=== PATIENT | female | born 2000 | race Asian ===

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

== ENCOUNTER 2025-01-25 09:48 | Emergency (ER) | payer OTHER, SELFPAY ==
[2025-01-25 09:59] VITALS: BP 120/64; PULSE 78; RESP 18; TEMP 37; O2SAT 100; BMI 22.8
--- NOTE | 2025-01-25 10:05 | DI.US.S_ITS ---
PROCEDURE: US PELVIC COMPLETE INDICATIONS: 4 WEEKS PREG WITH BLEEDING TECHNIQUE: Real-time scanning was performed of the pelvic organs, with image documentation. Additional endovaginal scanning was necessary due to incomplete visualization of the adnexal and endometrial structures by transabdominal scanning. COMPARISON: None. FINDINGS: Uterus: Uterus is anteverted and normal in size at 8.3 x 4.4 x 5.6 cm. The myometrium is homogeneous. The endometrium measures 6.0 mm combined thickness. No fibroids Ovaries: The right ovary measures 2.8 x 2.8 x 1.4 cm, with a calculated ovarian volume of 5.5 cc. The left ovary measures 3.6 x 1.8 x 2.2 cm, with a calculated ovarian volume of 7.4 cc. The ovaries have a normal sonographic appearance. Less than 12 follicles can be seen in each ovary. No adnexal masses are seen. Probable corpus luteum of the left ovary measuring 0.9 x 1.0 x 0.7 cm. Other: No pathologic free abdominal or pelvic fluid. IMPRESSION: No evidence of intrauterine or extra uterine . Recommend correlation with serial beta hCGs and possible follow-up ultrasound in 2-3 weeks. We strive to produce accurate, complete, and clear reports of imaging services. To assist us in improving patient care, this report was composed using standard report templates and voice recognition software. Therefore, it may contain abnormal punctuation, insertions and/or omissions. Occasional wrong-word or sound-alike substitutions may occur. Though we review the report and make efforts to correct it, we do recommend that the report be read carefully in proper context to recognize any text inaccuracies. Dictated by: Black Sosa M.D. on 01/25/2025 at 11:03 Approved by: Black Sosa M.D. on 01/25/2025 at 11:10
[2025-01-25 10:47] LABS: Add Manual Diff / Slide Review NO; Hematocrit 40.1 % (36-46); Hemoglobin 13.4 g/dL (12.0-16.0); Lymphocytes Absolute Auto 2200 /uL (1100-4500); Mean Corpuscular HGB Conc 33.3 % (30-36); Mean Corpuscular Hemoglobin 29.6 PG (26-34); Mean Corpuscular Volume 88.7 fL (80-100); Platelet Count 300 X10^3/uL (150-400)
[2025-01-25 11:03] LABS: Alanine Aminotransferase 13 IU/L (<35); Albumin 4.7 g/dL (3.5-5.0); Albumin Globulin Ratio 1.3 (1.0-2.8); Alkaline Phosphatase 61 U/L (38-126); Blood Urea Nitrogen 10 mg/dL (7-17); Calcium 8.8 mg/dL (8.4-10.2); Carbon Dioxide 20 mmol/L (22-32); Chloride 107 mmol/L (98-107); Estimated Glomerular Filt Rate > 60 mL/min (>60); Globulin 3.5 g/dL (1.7-4.1); Glucose 88 mg/dL (70-99); HEMOLYSIS 33 (0-50); Potassium 3.6 mmol/L (3.4-5.1); Sodium 139 mmol/L (137-145); Total Protein 8.2 g/dL (6.3-8.2)
[2025-01-25 11:20] LABS: HCG Quantitative /Beta subunit 4.09 mIU/mL
--- NOTE | 2025-01-25 11:50 | ED.PREGNANCY ---
HPI - General Chief complaint: Vaginal Bleeding Stated complaint: 3 1/2 weeks , bleeding Time Seen by Provider: 01/25/25 11:10 Source: patient Mode of arrival: Ambulatory Limitations: no limitations History of Present Illness HPI Narrative: 24-year-old female with LMP 12/25/2024 presents to the ED with vaginal bleeding, pelvic cramping that started this morning. Patient had a positive home test last week. No fever, chills, chest pain, shortness of breath, dysuria, abdominal pain, lightheadedness, dizziness, syncope. Patient has saw OBGYN Dr. Schultz on 01/12/2025 to initiate oral contraceptive pills. Patient was awaiting her period to start it, period was delayed, she took a test which was positive. Related Data Previous Rx's ?Medication ?Instructions ?Recorded drospirenone 3 mg-ethinyl 1 tab PO DAILY #84 tabs 01/12/25 estradiol 0.02 mg tablet (BLANCHE (28)) Allergies Allergy/AdvReac Type Severity Reaction Status Date / Time No Known Drug Allergies Allergy Verified 01/25/25 09:59 Review of Systems Constitutional Constitutional: Denies chills, Denies fatigue, Denies fever(s), Denies frequent falls, Denies lethargy and Denies weakness Eyes Eyes: Denies change in vision, Denies eye discharge, Denies irritation and Denies loss of vision ENT Ears, Nose, Mouth, and Throat: Denies change in voice, Denies dizziness, Denies neck pain, Denies sore throat and Denies throat swelling Cardiovascular Cardiovascular: Denies chest pain, Denies irregular heart rhythm, Denies lightheadedness, Denies palpitations, Denies dyspnea, Denies dyspnea on exertion and Denies orthopnea Respiratory Respiratory: Denies cough, Denies dyspnea, Denies dyspnea on exertion and Denies wheezing Gastrointestinal Gastrointestinal: Denies abdominal pain, Denies change in bowel habits, Denies diarrhea, Denies nausea and Denies vomiting Genitourinary Genitourinary: Reports abnormal vaginal bleeding and Reports pelvic pain Musculoskeletal Musculoskeletal: Denies neck pain and Denies numbness Integumentary/Breasts Skin/Breast: Denies pruritus, Denies erythema, Denies rash and Denies wounds Neurologic Neurologic: Denies behavioral changes, Denies confusion, Denies dizziness, Denies frequent falls, Denies loss of vision, Denies numbness and Denies weakness Psychiatric Psychiatric: Denies anxiety, Denies behavioral changes, Denies confusion, Denies depression, Denies homicidal ideation and Denies suicidal ideation Endocrine Endocrine: Denies fatigue, Denies flushing and Denies palpitations Hematologic/Lymphatic Hematologic/Lymphatic: Denies easy bruising Allergic/Immunologic Allergic/Immunologic: Denies urticaria, Denies throat swelling and Denies wheezing Exam Narrative Exam Narrative: Const General:?cooperative, healthy appearing and comfortable [facility] Head:?normal to inspection Ears:?hearing grossly normal bilaterally Nose:?external nose normal Face and sinus:?normal facial exam and sinuses nontender Mouth:?oral mucosae normal Throat:?posterior oropharynx normal Eyes General:?appearance normal, both eyes and all related structures Neck Neck:?normal visual inspection and no lymphadenopathy noted Resp Effort & Inspection:?normal respiratory effort Auscultation:?clear to auscultation bilaterally Cardio Rate:?regular rate Rhythm:?regular rhythm GI/ Exam deferred Neuro General:?patient alert, patient awake and patient oriented x3 Initial Vital Signs Initial Vital Signs: Vital Signs Temperature 98.6 F 01/25/25 09:59 Pulse Rate 78 01/25/25 09:59 Respiratory Rate 18 01/25/25 09:59 Blood Pressure 120/64 01/25/25 09:59 Pulse Oximetry 100 01/25/25 09:59 Oxygen Delivery Method Room Air 01/25/25 09:59 Course Orders Ordered: ED Orders 01/25/25 10:05 US pelvic complete Stat 01/25/25 10:42 Complete Blood Count AUTO DIFF Stat Comprehensive Metabolic Panel Stat HCG Quantitative /Beta subunit Stat Vital Signs Vital signs: Vital Signs - 8 hr 01/25/25 09:59 01/25/25 12:25 Temperature 98.6 F Pulse Rate 78 79 Respiratory Rate 18 16 Blood Pressure 120/64 108/66 Pulse Oximetry 100 98 Oxygen Delivery Method Room Air MDM - OB/Uterine Contractions Lab Data 01/25/25 10:42 01/25/25 10:42 Labs: Lab Results 01/25/25 Range/Units 10:42 WBC 11.4 H (4.5-11.0) X10^3/uL RBC 4.52 (4.0-5.2) X10^6/uL Hgb 13.4 (12.0-16.0) g/dL Hct 40.1 (36-46) % MCV 88.7 (80-100) fL MCH 29.6 (26-34) PG MCHC 33.3 (30-36) % RDW 13.2 (11.6-14.8) % Plt Count 300 (150-400) X10^3/uL Neut % (Auto) 68.4 (50-75) % Lymph % (Auto) 19.6 L (25-40) % [place] % (Auto) 8.2 (3-14) % Eos % (Auto) 3.0 (2-4) % Baso % (Auto) 0.8 (0-2) % Neut # (Auto) 7800 H (8338-0796) /uL Lymph # (Auto) 2200 (3608-2106) /uL [place] # (Auto) 900 (0-900) /uL Eos # (Auto) 300 (0-450) /uL Baso # (Auto) 100 (0-100) /uL Sodium 139 (137-145) mmol/L Potassium 3.6 (3.4-5.1) mmol/L Chloride 107 (98-107) mmol/L Carbon Dioxide 20 L (22-32) mmol/L BUN 10 (7-17) mg/dL Creatinine 0.51 L (0.52-1.04) mg/dL Estimated GFR > 60 (>60) mL/min BUN/Creatinine Ratio 19.6 (6-22) Glucose 88 (70-99) mg/dL Calcium 8.8 (8.4-10.2) mg/dL Total Bilirubin 0.6 (0.2-1.3) mg/dL AST 28 (14-36) IU/L ALT 13 (<35) IU/L Alkaline Phosphatase 61 (38-126) U/L Total Protein 8.2 (6.3-8.2) g/dL Albumin 4.7 (3.5-5.0) g/dL Globulin 3.5 (1.7-4.1) g/dL Albumin/Globulin Ratio 1.3 (1.0-2.8) HCG, Quant 4.09 mIU/mL MDM Narrative Medical decision making narrative: 24-year-old female with LMP 12/25/2024 presents to the ED with vaginal bleeding, pelvic cramping that started this morning. Pelvic ultrasound shows no evidence of intrauterine or extrauterine . HCG quantitative negative. All other labs within normal limits. Counseled patient that she likely had a miscarriage. Recommend ibuprofen for pain control. Recommend that patient follow-up with Dr. Schultz as soon as possible for further evaluation. ED return precautions were discussed with patient. Patient verbalized understanding. Medical records reviewed: Yes Discharge Plan Departure Patient Disposition: Home Clinical Impression: Miscarriage Instructions: DI for Miscarriage Activity Restrictions/Additional Instructions: You were evaluated in the emergency department today for vaginal bleeding during . The hormone hCG was negative, which does not indicate a currently. Your ultrasound shows no evidence of either. It appears that you took a home test that was positive last week, therefore appears that you might have had a miscarriage. It is reassuring to note that you have a OBGYN that you are able to see as soon as possible for further evaluation. Return to the ED if you have worsening symptoms. Prescriptions: No Action drospirenone-ethinyl estradiol [BLANCHE (28)] 3-0.02 mg tablet 1 tab PO DAILY Qty: 84 6RF Rx Instructions: Begin taking one pill daily when you start your next period. Stand Alone Forms: Patient Portal/API
--- NOTE | 2025-01-25 11:58 | ED_ITS ---
HPI - General Chief complaint: Vaginal Bleeding Stated complaint: 3 1/2 weeks , bleeding Time Seen by Provider: 01/25/25 11:10 Source: patient Mode of arrival: Ambulatory Limitations: no limitations History of Present Illness HPI Narrative: 24-year-old A1 female Related Data Previous Rx's ?Medication ?Instructions ?Recorded drospirenone 3 mg-ethinyl 1 tab PO DAILY #84 tabs 12/17 11/09 estradiol 0.02 mg tablet (BLANCHE (28)) Allergies Allergy/AdvReac Type Severity Reaction Status Date / Time No Known Drug Allergies Allergy Verified 01/25/25 09:59 Review of Systems Constitutional Constitutional: Denies frequent falls and Denies weakness Eyes Eyes: Denies loss of vision ENT Ears, Nose, Mouth, and Throat: Denies dizziness Musculoskeletal Musculoskeletal: Denies numbness Neurologic Neurologic: Denies behavioral changes, Denies confusion, Denies dizziness, Denies frequent falls, Denies loss of vision, Denies numbness and Denies weakness Psychiatric Psychiatric: Denies behavioral changes and Denies confusion Exam Initial Vital Signs Initial Vital Signs: Vital Signs Temperature 98.6 F 01/25/25 09:59 Pulse Rate 78 01/25/25 09:59 Respiratory Rate 18 01/25/25 09:59 Blood Pressure 120/64 01/25/25 09:59 Pulse Oximetry 100 01/25/25 09:59 Oxygen Delivery Method Room Air 01/25/25 09:59 Course Orders Ordered: ED Orders 01/25/25 10:05 US pelvic complete Stat Type and Screen Stat 01/25/25 10:42 Complete Blood Count AUTO DIFF Stat Comprehensive Metabolic Panel Stat HCG Quantitative /Beta subunit Stat Vital Signs Vital signs: Vital Signs - 8 hr 01/25/25 09:59 Temperature 98.6 F Pulse Rate 78 Respiratory Rate 18 Blood Pressure 120/64 Pulse Oximetry 100 Oxygen Delivery Method Room Air MDM - OB/Uterine Contractions Lab Data 01/25/25 10:42 01/25/25 10:42 Labs: Lab Results 01/25/25 Range/Units 10:42 WBC 11.4 H (4.5-11.0) X10^3/uL RBC 4.52 (4.0-5.2) X10^6/uL Hgb 13.4 (12.0-16.0) g/dL Hct 40.1 (36-46) % MCV 88.7 (80-100) fL MCH 29.6 (26-34) PG MCHC 33.3 (30-36) % RDW 13.2 (11.6-14.8) % Plt Count 300 (150-400) X10^3/uL Neut % (Auto) 68.4 (50-75) % Lymph % (Auto) 19.6 L (25-40) % [place] % (Auto) 8.2 (3-14) % Eos % (Auto) 3.0 (2-4) % Baso % (Auto) 0.8 (0-2) % Neut # (Auto) 7800 H (6795-2276) /uL Lymph # (Auto) 2200 (4035-0444) /uL [place] # (Auto) 900 (0-900) /uL Eos # (Auto) 300 (0-450) /uL Baso # (Auto) 100 (0-100) /uL Sodium 139 (137-145) mmol/L Potassium 3.6 (3.4-5.1) mmol/L Chloride 107 (98-107) mmol/L Carbon Dioxide 20 L (22-32) mmol/L BUN 10 (7-17) mg/dL Creatinine 0.51 L (0.52-1.04) mg/dL Estimated GFR > 60 (>60) mL/min BUN/Creatinine Ratio 19.6 (6-22) Glucose 88 (70-99) mg/dL Calcium 8.8 (8.4-10.2) mg/dL Total Bilirubin 0.6 (0.2-1.3) mg/dL AST 28 (14-36) IU/L ALT 13 (<35) IU/L Alkaline Phosphatase 61 (38-126) U/L Total Protein 8.2 (6.3-8.2) g/dL Albumin 4.7 (3.5-5.0) g/dL Globulin 3.5 (1.7-4.1) g/dL Albumin/Globulin Ratio 1.3 (1.0-2.8) HCG, Quant 4.09 mIU/mL Discharge Plan Departure Patient Disposition: Home Clinical Impression: Miscarriage Instructions: DI for Miscarriage Activity Restrictions/Additional Instructions: You were evaluated in the emergency department today for vaginal bleeding during . The hormone hCG was negative, which does not indicate a currently. Your ultrasound shows no evidence of either. It appears that you took a home test that was positive last week, therefore appears that you might have had a miscarriage. It is reassuring to note that you have a OBGYN that you are able to see as soon as possible for further evaluation. Return to the ED if you have worsening symptoms. Prescriptions: No Action drospirenone-ethinyl estradiol [BLANCHE (28)] 3-0.02 mg tablet 1 tab PO DAILY Qty: 84 6RF Rx Instructions: Begin taking one pill daily when you start your next period. Stand Alone Forms: Patient Portal/API
[2025-01-25 12:25] VITALS: BP 108/66; PULSE 79; RESP 16; O2SAT 98
== END 2025-01-25 12:49 | disposition home or self-care (01) ==
PROVIDERS: Emergency Medicine; Emergency Provider Student in an Organized Health Care Education/Training Program
DX: O03.9 Complete or unspecified spontaneous abortion without complication (principal)
CPT/HCPCS: 36415; 76830; 76856; 80053; 84702; 85025; 93975; 99281; 99284

== ENCOUNTER → 2025-02-23 14:28 | Outpatient (CLI) | payer OTHER, SELFPAY ==
[2025-02-23 15:14] LABS: HCG Quantitative /Beta subunit < 2.39 mIU/mL
== END ==
PROVIDERS: Referring Provider Obstetrics & Gynecology; Visit Provider Obstetrics & Gynecology
DX: N91.2 Amenorrhea, unspecified (principal)
CPT/HCPCS: 36415; 84702